=== PATIENT | male | born 2000 | race African-American/Black ===

== ENCOUNTER 2022-05-12 21:49 | Emergency (ER) | payer OTHER ==
[2022-05-12] MEDS ORDERED: HYDROCODONE/APAP 7.5/325 MG TAB ONE (22:33)
--- NOTE | 2022-05-12 23:10 | RAD REPORT ---
EXAM DESCRIPTION: RAD - Femur Right - 05/12/2022 11:01 pm CLINICAL HISTORY: PAIN COMPARISON: No comparisons FINDINGS/IMPRESSION: No acute fracture. No malalignment. No significant focal degenerative changes.
--- NOTE | 2022-05-12 23:23 | EDPHYS ---
Physician Documentation [facility] Name: Crispin Alfaro Age: 22 yrs Sex: Male : 2000 Arrival Date: 05/12/2022 Time: 21:53 Bed 19 Private MD: ED Physician Christopher Pérez HPI: 05/12 22:35 This 22 yrs old Black Male presents to ER via Ambulatory with complaints of Leg Injury. jh7 22:35 The patient presents with an injury. The complaints affect the right quadriceps. jh7 Context: The problem was sustained Gas station, resulted from the patient tripping, On a gas hose, the patient can fully bear weight, the patient is able to ambulate. 22:35 Onset: The symptoms/episode began/occurred acutely. Associated signs and symptoms: jh7 Pertinent positives: Pain, tenderness over the quadricep. Patient states that he was pumping gas at the gas station, and tripped over the gas hose. States that he hyperextended his right quadricep and caught himself with his hands. Reports pain and tenderness over the quadricep.. Historical: - Allergies: 22:29 SHELLFISH; kd3 22:29 Iodine; kd3 - Home Meds: 22:29 None [Active]; kd3 - PMHx: 22:29 None; kd3 - Immunization history:: Adult Immunizations up to date. - Social history:: Smoking status: Reported history of juuling and/or vaping. ROS: 22:29 Constitutional: Negative for fever, chills, and weight loss, Eyes: Negative for injury, jh7 pain, redness, and discharge, Neck: Negative for injury, pain, and swelling, Cardiovascular: Negative for chest pain, palpitations, and edema, Respiratory: Negative for shortness of breath, cough, wheezing, and pleuritic chest pain, Back: Negative for injury and pain, Skin: Negative for injury, rash, and discoloration, Neuro: Negative for headache, weakness, numbness, tingling, and seizure. 22:29 MS/extremity: Positive for pain, tenderness, Negative for decreased range of motion. 22:29 All other systems are negative. Exam: 22:29 Constitutional: This is a well developed, well nourished patient who is awake, alert, jh7 and in no acute distress. Head/Face: Normocephalic, atraumatic. Eyes: Pupils equal round and reactive to light, extra-ocular motions intact. Lids and lashes normal. Conjunctiva and sclera are non-icteric and not injected. Cornea within normal limits. Periorbital areas with no swelling, redness, or edema. Neck: Trachea midline, no thyromegaly or masses palpated, and no cervical lymphadenopathy. Supple, full range of motion without nuchal rigidity, or vertebral point tenderness. No Meningismus. Cardiovascular: Regular rate and rhythm with a normal S1 and S2. No gallops, murmurs, or rubs. Normal PMI, no JVD. No pulse deficits. Respiratory: Lungs have equal breath sounds bilaterally, clear to auscultation and percussion. No rales, rhonchi or wheezes noted. No increased work of breathing, no retractions or nasal flaring. Back: No spinal tenderness. No costovertebral tenderness. Full range of motion. Skin: Warm, dry with normal turgor. Normal color with no rashes, no lesions, and no evidence of cellulitis. Neuro: Awake and alert, GCS 15, oriented to person, place, time, and situation. Sensory grossly intact. Antalgic gait. 22:29 Musculoskeletal/extremity: ROM: intact in all extremities, Circulation is intact in all extremities. Sensation intact. Tenderness to palpation noted over the right quadricep. Vital Signs: 22:25 Pulse 102; Resp 18; Temp 99.8; Pulse Ox 97% on R/A; Weight 144.24 kg; Height 6 ft. 1 kd3 in. (185.42 cm); Pain 7/10; 22:30 BP 168 / 90; kd3 22:25 Body Mass Index 41.95 (144.24 kg, 185.42 cm) 3 MDM: 22:00 Patient medically screened. [facility] 23:25 Differential diagnosis: Muscle strain, closed fracture. Data reviewed: vital signs, [facility] nurses notes, radiologic studies, plain films. Data interpreted: Pulse oximetry: is 98 %. Interpretation: normal. Counseling: I had a detailed discussion with the patient and/or guardian regarding: the historical points, exam findings, and any diagnostic results supporting the discharge/admit diagnosis, to return to the emergency department if symptoms worsen or persist or if there are any questions or concerns that arise at home. 05/12 22:13 Order name: Femur Right XRAY; Complete Time: 23:20 jh7 05/12 23:22 Order name: Clemente Wrap; Complete Time: 23:34 [facility] Administered Medications: 22:33 Drug: [place] (HYDROcodone-acetaminophen) (7.5 mg-325 mg) 1 tabs Route: PO; kd3 23:34 Follow up: Response: No adverse reaction; Marked relief of symptoms 3 Disposition: 05/13 02:42 Co-signature as Attending Physician, Christopher Pérez MD. rn Disposition Summary: 05/12/22 23:22 Discharge Ordered Location: Home [facility] Problem: new [facility] Symptoms: are unchanged [facility] Condition: Stable [facility] Diagnosis - Strain of right quadriceps muscle, fascia and tendon [facility] Followup: [facility] - With: Private Physician - When: 2 - 3 days - Reason: Recheck today's complaints Discharge Instructions: - Discharge Summary Sheet [facility] Forms: - Medication Reconciliation Form [facility] - Thank You Letter [facility] Prescriptions: - Naprosyn 500 mg Oral Tablet - take 1 tablet by ORAL route 2 times per day take with food; 30 tablet; Refills: [facility] 0, Product Selection Permitted - Cyclobenzaprine 10 mg Oral Tablet - take 1 tablet by ORAL route every 8 hours As needed; 30 tablet; Refills: 0, jh7 Product Selection Permitted Signatures: Dispatcher [employer] Christopher Pineda MD MD rn Doucette, Kyli, RN RN kd3 Alee Rivas FNP [employer] [facility] Kerwin Chicas RN ll3 Corrections: (The following items were deleted from the chart) 05/12 23:16 22:35 The patient presents with an injury, [place] [id number] 23:16 22:35 The complaints affect the right quadriceps, [place] [id number]
--- NOTE | 2022-05-12 23:23 | ER ---
Nurse's Notes [facility] Name: Crispin Alfaro Age: 22 yrs Sex: Male : 2000 Arrival Date: 05/12/2022 Time: 21:53 Bed 19 Private MD: Diagnosis: Strain of right quadriceps muscle, fascia and tendon Presentation: 05/12 22:25 Chief complaint: Patient states: I tripped over a gas pump. My right quad hurts. I am kd3 pretty sure I pulled it. When I tripped I heard and felt a loud popping noise. Coronavirus screen: Vaccine status: Patient reports receiving the 2nd dose of the covid vaccine. [employer]. Ebola Screen: No symptoms or risks identified at this time. Initial Sepsis Screen: Does the patient meet any 2 criteria? No. Patient's initial sepsis screen is negative. Does the patient have a suspected source of infection? No. Patient's initial sepsis screen is negative. Risk Assessment: Do you want to hurt yourself or someone else? Patient reports no desire to harm self or others. Onset of symptoms was May 12, 2022. 22:25 Method Of Arrival: Ambulatory kd3 22:25 Acuity: CIRO 3 kd3 Triage Assessment: 22:30 General: Appears uncomfortable, Behavior is calm, cooperative. Pain: Complains of pain kd3 in right quadriceps. Neuro: Level of Consciousness is awake, alert, obeys commands, Oriented to person, place, time, situation. Musculoskeletal: Circulation, motion, and sensation intact. Injury Description: pulled muscle. Historical: - Allergies: 22:29 SHELLFISH; kd3 22:29 Iodine; kd3 - Home Meds: 22:29 None [Active]; kd3 - PMHx: 22:29 None; kd3 - Immunization history:: Adult Immunizations up to date. - Social history:: Smoking status: Reported history of juuling and/or vaping. Screenin:31 Abuse screen: Denies threats or abuse. Denies injuries from another. Nutritional kd3 screening: No deficits noted. Tuberculosis screening: No symptoms or risk factors identified. Fall Risk None identified. Assessment: 22:45 General: Appears uncomfortable, Behavior is calm, cooperative. Pain: Complains of pain ll3 in right quadriceps Pain does not radiate. Pain currently is 7 out of 10 on a pain scale. Pain began 1 day ago. Is continuous, Aggravated by repositioning, weight bearing. Neuro: Level of Consciousness is awake, alert, obeys commands, Oriented to person, place, time, situation. Derm: Skin is pink, warm \T\ dry. Musculoskeletal: Circulation, motion, and sensation intact. Range of motion: limited in right knee Swelling present in right quadriceps Reports pain in right leg since This morning. Pain is 7 out of 10 on a pain scale. Vital Signs: 22:25 Pulse 102; Resp 18; Temp 99.8; Pulse Ox 97% on R/A; Weight 144.24 kg; Height 6 ft. 1 kd3 in. (185.42 cm); Pain 7/10; 22:30 BP 168 / 90; kd3 22:25 Body Mass Index 41.95 (144.24 kg, 185.42 cm) kd3 ED Course: 21:53 Patient arrived in ED. 2 22:00 Alee Rivas FNP is PHCP. jh7 22:00 Christopher Pérez MD is Attending Physician. jh7 22:29 Triage completed. kd3 22:30 Arm band placed on left wrist. kd3 22:31 Patient has correct armband on for positive identification. kd3 22:31 No provider procedures requiring assistance completed. kd3 22:35 Ce Theodore, RN is Primary Nurse. kd3 23:03 Femur Right XRAY In Process Unspecified. EDMS 23:34 IV discontinued, intact, bleeding controlled, No redness/swelling at site. Pressure ll3 dressing applied. Administered Medications: 22:33 Drug: [place] (HYDROcodone-acetaminophen) (7.5 mg-325 mg) 1 tabs Route: PO; kd3 23:34 Follow up: Response: No adverse reaction; Marked relief of symptoms ll3 Medication: 23:34 VIS not applicable for this client. ll3 Outcome: 23:22 Discharge ordered by . 7 23:34 Discharged to home ambulatory, with significant other. ll3 23:34 Condition: stable 23:34 Discharge instructions given to patient, significant other, Instructed on discharge instructions, follow up and referral plans. medication usage, Demonstrated understanding of instructions, follow-up care, medications, Prescriptions given X 2. 23:35 Patient left the ED. ll3 Signatures: Dispatcher [employer] EDMS Val Willamsubet, Lynsea, RN RN ll3 Ce Theodore, RN RN kd3 Alee Rivas, LUCIANO ANGIOGRAPHER jh7
[2022-05-12 23:43] VITALS: TEMP 99.8; O2SAT 97
[2022-05-12 23:44] VITALS: BP 168/90
== END 2022-05-12 23:35 | disposition home or self-care (01) ==
LOC: ER 21:49
DX: S76.111A Strain of right quadriceps muscle, fascia and tendon, initial encounter (principal); Z91.013 Allergy to seafood; Z91.048 Other nonmedicinal substance allergy status
CPT/HCPCS: 99283